=== PATIENT | female | born 1990 | race Caucasian/White ===

== ENCOUNTER 2021-08-10 19:22 | Emergency (ER) | payer OTHER ==
[2021-08-10] MEDS ORDERED: Bacitracin 1 PK ONE (19:44)
== END 2021-08-10 19:54 | disposition home or self-care (01) ==
LOC: MADERS 19:22
DX: S61.211A Laceration without foreign body of left index finger without damage to nail, initial encounter (principal); J45.909 Unspecified asthma, uncomplicated; W26.0XXA Contact with knife, initial encounter; Y92.009 Unspecified place in unspecified non-institutional (private) residence as the place of occurrence of the external cause
CPT/HCPCS: 99283